=== PATIENT | female | born 1970 | race Caucasian/White ===

== ENCOUNTER 2017-02-02 16:22 | Emergency (ER) | payer OTHER ==
[~2017-02-02 16:22] MED LIST: ACETAMINOPHEN PO; ALBUTEROL17 GM INH; ALLERGY MED OTC; ASPIRIN81 M1 PO; BENZONATATE PO; CLARITIN10 M3 PO; FLONASE 0.05% N16 G1; ILOTYCIN1 GM OU; LORTAB 7.5-5001 TAB PO; MEDROL DOSEPAK4 MG PO; MUCINEX PO; NO MEDICATIONS; ORUDIS75 M1 DOB; PHENERGAN DM PO; PREDNISONE PO; PROMETHAZINE PO; TESSALON PERLE100 M1 PO; ZITHROMAX PO; [UNRECOGNIZED DRUG - OTHER]
== END 2017-02-02 17:07 | disposition home or self-care (01) ==
LOC: SED 16:22
DX: L73.9 Follicular disorder, unspecified (principal); J44.9 Chronic obstructive pulmonary disease, unspecified; F17.210 Nicotine dependence, cigarettes, uncomplicated; Z88.2 Allergy status to sulfonamides; Z91.040 Latex allergy status; Z88.5 Allergy status to narcotic agent
CPT/HCPCS: 82947; 99282